=== PATIENT | male | born 1985 ===

== ENCOUNTER 2018-04-24 12:47 | Emergency (ER) | payer OTHER ==
--- NOTE | 2018-04-24 13:12 | EDM.PDOC ---
ED HPI GENERAL MEDICAL PROBLEM - General Chief Complaint: Upper Extremity Injury/Pain Stated Complaint: HURT SHOULDER Time Seen by Provider: 04/24/18 13:12 Source of Information: Reports: Patient History Limitations: Reports: No Limitations - History of Present Illness INITIAL COMMENTS - FREE TEXT/NARRATIVE: HISTORY AND PHYSICAL: History of present illness: Patient is a 32-year-old male here with complaint of right shoulder pain. He states a couple of days ago at work he was tightening something with a wrench when he felt his shoulder pop in and out. It didn't bother him until later when he tried lifting something and started having pain the shoulder. He states it will pop with certain movements and having limited range of motion. Review of systems: As per history of present illness and below otherwise all systems reviewed and negative. Past medical history: As per history of present illness and as reviewed below otherwise noncontributory. Surgical history: As per history of present illness and as reviewed below otherwise noncontributory. Social history: No reported history of drug or alcohol abuse. Family history: As per history of present illness and as reviewed below otherwise noncontributory. Physical exam: General: Patient sitting comfortably in no acute distress and nontoxic appearing HEENT: Atraumatic, normocephalic, pupils reactive, negative for conjunctival pallor or scleral icterus, mucous membranes moist, throat clear, neck supple, nontender, trachea midline. No meningeal signs. Lungs: Clear to auscultation, breath sounds equal bilaterally, chest nontender. Heart: S1S2, regular, negative for clicks, rubs, or overt murmur. Abdomen: Soft, nondistended, nontender. Negative for masses or hepatosplenomegaly. Negative for costovertebral tenderness. Pelvis: Stable nontender. Genitourinary: Deferred. Rectal: Deferred. Extremities: No pain to palpation of the shoulder. Pain with adduction and abduction of the shoulder with limited ROM. Atraumatic, negative for cords or calf pain. Neurovascular unremarkable. Neuro: Awake, alert, oriented. Cranial nerves II through XII unremarkable. Cerebellum unremarkable. Motor and sensory unremarkable throughout. Exam nonfocal. Notes: Diagnostics: x-ray right shoulder Therapeutics: Sling Prescriptions: None Impression: Right shoulder pain Plan: 1. Alternate motrin and tylenol as needed 2. Follow up with orthopedics, please call number provided to schedule an appointment 3. Return to ED as needed as discussed Definitive disposition and diagnosis as appropriate pending reevaluation and review of above. right shoulder Pain Score (Numeric/FACES): 2 - Related Data Allergies Allergy/AdvReac Type Severity Reaction Status Date / Time amoxicillin Allergy Anaphylactic Verified 04/24/18 13:08 Shock Home Meds: Home Meds . [No Known Home Meds] 04/24/18 [History] Review of Systems - Review of Systems Review Of Systems: ROS reveals no pertinent complaints other than HPI. ED EXAM, GENERAL - Physical Exam Exam: See Below (see dictation) Course - Vital Signs Last Recorded V/S: Last Vital Signs Temp 97.5 F 04/24/18 13:08 Pulse 65 04/24/18 14:13 Resp 16 04/24/18 14:13 BP 111/63 04/24/18 14:13 Pulse Ox 97 04/24/18 14:13 Departure - Departure Time of Disposition: 14:21 Disposition: Home, Self-Care 01 Condition: Good Clinical Impression: Right shoulder pain - Discharge Information Referrals: PCP,None [Primary Care Provider] - Forms: ED Department Discharge Additional Instructions: The following information is given to patients seen in the emergency department who are being discharged to home. This information is to outline your options for follow-up care. We provide all patients seen in our emergency department with a follow-up referral. The need for follow-up, as well as the timing and circumstances, are variable depending upon the specifics of your emergency department visit. If you don't have a primary care physician on staff, we will provide you with a referral. We always advise you to contact your personal physician following an emergency department visit to inform them of the circumstance of the visit and for follow-up with them and/or the need for any referrals to a consulting specialist. The emergency department will also refer you to a specialist when appropriate. This referral assures that you have the opportunity for follow-up care with a specialist. All of these measure are taken in an effort to provide you with optimal care, which includes your follow-up. Under all circumstances we always encourage you to contact your private physician who remains a resource for coordinating your care. When calling for follow-up care, please make the office aware that this follow-up is from your recent emergency room visit. If for any reason you are refused follow-up, please contact the [facility] Emergency Department at and asked to speak to the emergency department charge nurse. [facility] [address], [address] [place] [address] 1. Alternate motrin and tylenol as needed 2. Follow up with orthopedics, please call number provided to schedule an appointment 3. Return to ED as needed as discussed
--- NOTE | 2018-04-24 14:17 | CR ---
Indication: Lifted heavy items at work last week and now has pain in the right shoulder. Technique: Two views of the right shoulder were obtained. Comparison: None Findings: Humeral head is seated within the glenoid. No acute fracture or subluxation is identified. The joint spaces are well maintained. Impression: No acute fracture. Dictated by Lashonda Foote MD @ Apr 24 2018 2:15PM Signed by Dr. Lashonda Foote @ Apr 24 2018 2:16PM
== END 2018-04-24 14:33 | disposition home or self-care (01) ==
LOC: MW.ED 12:47
DX: M25.511 Pain in right shoulder (principal); Z88.1 Allergy status to other antibiotic agents; W20.8XXA Other cause of strike by thrown, projected or falling object, initial encounter; Y99.0 Civilian activity done for income or pay
CPT/HCPCS: 73030-26-RT; 73030-RT; 99282; 99283